=== PATIENT | female | born 1975 | race Caucasian/White ===

== ENCOUNTER 2019-06-30 13:11 | Inpatient (IN) | payer MEDICAID ==
[~2019-06-30] VITALS: Ht 167.6 cm; Wt 83.4 kg
[2019-06-30] MEDS ORDERED: DOCUSATE 100 MG CAPSULE PO PRN (14:00)
[2019-06-30] MEDS ORDERED: POLYETHYLENE GLYCOL 17 GM PACKET PO PRN (14:00)
[2019-06-30] MEDS ORDERED: ONDANSETRON ODT 4 MG PO PRN (14:00)
[2019-06-30] MEDS ORDERED: BISACODYL 10 MG SUPP PR PRN (14:00)
[2019-06-30] MEDS ORDERED: ACETAMINOPHEN 325 MG TABLET PO PRN (14:00)
[2019-06-30] MEDS ORDERED: ENAL20TA PO (14:02)
[2019-06-30] MEDS ORDERED: FLUO40CA2 PO (14:04)
[2019-06-30] MEDS ORDERED: FURO40TA6 PO (14:04)
[2019-06-30] MEDS ORDERED: SPIR100T4 PO (14:05)
[2019-06-30] MEDS ORDERED: TRAZ-175 PO (14:06)
[2019-06-30] MEDS: PLEASE ENTER ALLERGIES MC SCH ×2 (14:30→22:30)
[2019-06-30 15:27] VITALS: BP 140/87
[2019-06-30] MEDS ORDERED: PLEASE ENTER HEIGHT AND WEIGHT MC SCH (15:30)
[2019-06-30] MEDS ORDERED: ALBU6.7H8 INH (16:51)
[2019-06-30 18:46] LABS: CHOL/HDL RATIO 2.5; FREE T4 (FREE THYROXINE) 1.15 ng/dL (0.76-1.46); LDL/HDL RATIO 1.3 (0.5-3.0)
[2019-06-30 19:42] VITALS: BP 147/90
[2019-06-30 20:08] LABS: MICROSCOPIC INDICATED
[2019-06-30 20:37] LABS: CULTURE INDICATED? YES
[2019-07-01] MEDS ORDERED: ALBUTEROL SULFATE INH SCH (07:00)
[2019-07-01 07:27] VITALS: BP 132/84
[2019-07-01] MEDS: OMEPRAZOLE 20 MG CAPSULE.DR PO SCH (07:39)
[2019-07-01] MEDS: ENALAPRIL 20MG TABLET PO SCH (08:36)
[2019-07-01] MEDS: FUROSEMIDE 20 MG TABLET PO SCH (08:36)
[2019-07-01] MEDS: SPIRONOLACTONE 100 MG TABLET PO SCH (08:36)
[2019-07-01] MEDS: ACAMPROSATE 333 MG TABLET.DR PO SCH ×3 (14:36→19:59)
[2019-07-01] MEDS: NICOTINE 14MG/24 HR PATCH.TD24 TD SCH (14:37)
[2019-07-01] MEDS: FLUOXETINE HCL 20 MG CAPSULE PO SCH (14:37)
[2019-07-01 17:04] LABS: BASOPHILS # (AUTO) 0.02 x10^3/uL (0-0.1); BASOPHILS % (AUTO) 0 % (0-1); EOSINOPHILS # (AUTO) 0.11 x10^3/uL (0-0.4); EOSINOPHILS % (AUTO) 2 % (1-7); LYMPHOCYTES # (AUTO) 1.44 x10^3/uL (1-3.4); LYMPHOCYTES % (AUTO) 22 % (22-44); MD NO; MEAN CORPUSCULAR HEMOGLOBIN 31.3 pg (27.0-34.8); MEAN CORPUSCULAR HGB CONC 33.5 g/dL (32.4-35.8); MEAN CORPUSCULAR VOLUME 93.4 fL (80-100); MEAN PLATELET VOLUME 8.4 fL (7.4-10.4); MONOCYTES # (AUTO) 0.34 x10^3/uL (0.2-0.8); MONOCYTES % (AUTO) 5 % (2-9); NEUTROPHILS % (AUTO) 70 % (42-75); PLATELET COUNT 137 x10^3/uL (130-400); RED BLOOD COUNT 4.18 x10^6/uL (3.82-5.3); RED CELL DISTRIBUTION WIDTH 13.9 % (9.6-15.2)
[2019-07-01 17:10] LABS: ANION GAP 7 mmol/L (5-15); CALCIUM 9.3 mg/dL (8.5-10.1); CHLORIDE 104 mmol/L (98-107)
[2019-07-01 17:11] LABS: CREATININE 0.91 mg/dL (0.55-1.02)
[2019-07-01 19:10] VITALS: BP 114/71
[2019-07-01] MEDS ORDERED: MELATONIN 3 MG TABLET ONE (20:22)
[2019-07-01] MEDS: MELATONIN 3 MG TABLET PO PRN (20:25)
[2019-07-02] MEDS: OMEPRAZOLE 20 MG CAPSULE.DR PO SCH (06:00)
[2019-07-02 07:45] VITALS: BP 125/84
[2019-07-02] MEDS: ENALAPRIL 20MG TABLET PO SCH (08:55)
[2019-07-02] MEDS: FLUOXETINE HCL 20 MG CAPSULE PO SCH (08:56)
[2019-07-02] MEDS: ACAMPROSATE 333 MG TABLET.DR PO SCH ×3 (08:56→20:11)
[2019-07-02] MEDS: SPIRONOLACTONE 100 MG TABLET PO SCH (08:57)
[2019-07-02] MEDS: FUROSEMIDE 20 MG TABLET PO SCH (08:57)
[2019-07-02] MEDS: NICOTINE 14MG/24 HR PATCH.TD24 TD SCH (08:59)
[2019-07-02 19:05] VITALS: BP 111/74
[2019-07-02] MEDS: MELATONIN 3 MG TABLET PO PRN (20:11)
[2019-07-03] MEDS: OMEPRAZOLE 20 MG CAPSULE.DR PO SCH (05:40)
[2019-07-03 07:35] VITALS: BP 114/72
[2019-07-03] MEDS: ACAMPROSATE 333 MG TABLET.DR PO SCH ×3 (08:20→21:54)
[2019-07-03] MEDS: SPIRONOLACTONE 100 MG TABLET PO SCH (08:20)
[2019-07-03] MEDS: FUROSEMIDE 20 MG TABLET PO SCH (08:20)
[2019-07-03] MEDS: FLUOXETINE HCL 20 MG CAPSULE PO SCH (08:21)
[2019-07-03] MEDS: NICOTINE 21 MG/24 HR PATCH.TD24 TD SCH (08:21)
[2019-07-03] MEDS: ENALAPRIL 20MG TABLET PO SCH (08:25)
[2019-07-03] MEDS ORDERED: TRAZODONE 100MG TABLET PO PRN (14:30)
[2019-07-03 19:38] VITALS: BP 107/74
[2019-07-04] MEDS: OMEPRAZOLE 20 MG CAPSULE.DR PO SCH (05:30)
[2019-07-04 07:28] VITALS: BP 103/67
[2019-07-04] MEDS: ACAMPROSATE 333 MG TABLET.DR PO SCH (08:58)
[2019-07-04] MEDS: ENALAPRIL 20MG TABLET PO SCH (08:58)
[2019-07-04] MEDS: SPIRONOLACTONE 100 MG TABLET PO SCH (08:58)
[2019-07-04] MEDS: FLUOXETINE HCL 20 MG CAPSULE PO SCH (08:58)
[2019-07-04] MEDS: FUROSEMIDE 20 MG TABLET PO SCH (08:59)
[2019-07-04] MEDS: NICOTINE 21 MG/24 HR PATCH.TD24 TD SCH (08:59)
== END 2019-07-04 11:20 | disposition home or self-care (01) | DRG 751 ==
LOC: 3E 14:17
PROVIDERS: ADMIT Psychiatry & Neurology Psychosomatic Medicine; ATTEND Psychiatry & Neurology Psychosomatic Medicine
DX: F33.2 Major depressive disorder, recurrent severe without psychotic features (principal); K76.6 Portal hypertension; R45.851 Suicidal ideations; K70.30 Alcoholic cirrhosis of liver without ascites; F10.20 Alcohol dependence, uncomplicated; F17.210 Nicotine dependence, cigarettes, uncomplicated; G47.00 Insomnia, unspecified; K21.9 Gastro-esophageal reflux disease without esophagitis; J30.2 Other seasonal allergic rhinitis; I10 Essential (primary) hypertension; Z79.899 Other long term (current) drug therapy; Z80.3 Family history of malignant neoplasm of breast; Z82.3 Family history of stroke; Y90.9 Presence of alcohol in blood, level not specified
CPT/HCPCS: 36415; 71045; 80048; 80061; 81001; 84439; 84443; 85025; 87077; 87086; 87186; 93005